=== PATIENT | female | born 2000 | race Caucasian/White ===

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

== ENCOUNTER 2022-04-30 08:33 | Emergency (ER) | payer BC ==
[2022-04-30 08:43] VITALS: BP 100/84; PULSE 80
== END 2022-04-30 08:59 | disposition home or self-care (01) ==
LOC: MW.ED 08:33
DX: H66.92 Otitis media, unspecified, left ear (principal); E66.9 Obesity, unspecified; Z68.34 Body mass index [BMI] 34.0-34.9, adult; Z88.1 Allergy status to other antibiotic agents
CPT/HCPCS: 99282; 99283

== ENCOUNTER 2022-05-12 19:18 | Emergency (ER) | payer BC ==
[2022-05-12 21:17] LABS: CORONAVIRUS COVID-19 NAA NEGATIVE (NEGATIVE); INFLUENZA A NAA NEGATIVE (NEGATIVE); INFLUENZA B NAA NEGATIVE (NEGATIVE)
[2022-05-12] MEDS ORDERED: Amoxicillin/Clavulanate K 875-125 MG Tab PO STA (21:25)
[2022-05-12] MEDS ORDERED: Doxycycline 100 MG Cap PO STA (21:34)
[2022-05-12 21:41] VITALS: BP 117/81; PULSE 98
== END 2022-05-12 21:43 | disposition home or self-care (01) ==
LOC: MW.ED 19:18
DX: J18.9 Pneumonia, unspecified organism (principal); J30.9 Allergic rhinitis, unspecified; E66.9 Obesity, unspecified; Z68.37 Body mass index [BMI] 37.0-37.9, adult; Z88.1 Allergy status to other antibiotic agents; Z20.822 Contact with and (suspected) exposure to COVID-19
CPT/HCPCS: 0240U; 71046; 99284; A9270